=== PATIENT | female | born 2000 | race Caucasian/White ===

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

== ENCOUNTER 2022-10-17 04:15 | Outpatient (CLI) | payer MEDICAID, SELFPAY ==
[2022-10-17 11:59] LABS: Abs Immature Grans 0.06 10^3/uL (0.0-0.06); Absolute Basophil Count 0.02 10^3/uL (0.0-0.2); Absolute Eosinophil Count 0.14 10^3/uL (0.0-0.7); Absolute Monocyte Count 0.46 10^3/uL (0.1-0.8); Absolute Neutrophil Count 7.51 10^3/uL (1.2-6.7); Basophils % 0.2; Eosinophils % 1.3; HCT 36.6 % (36.0-46.0); HGB 12.6 g/dL (11.2-15.7); Immature Grans % 0.6; Lymphocytes % 21.2; MCHC 34.4 % (32.0-36.0); MCV 93 fL (80-95); MPV 9.2 fL (8.0-11.0); Monocytes % 4.4; Neutrophils % 72.3; Platelet Count 325 10^3/uL (130-400); RBC 3.94 10^6/uL (3.93-5.22); RDW 11.8 % (11.7-14.6); RDW-SD 40.3 fL; WBC 10.39 10^3/uL (4.4-10.8)
[2022-10-17 12:15] LABS: Glucose,1 Hr (Glucola) 114 mg/dL (80-140)
[2022-10-17 12:46] LABS: TSH (W/Ref FT4) 0.52 uIU/mL (0.36-3.74)
[2022-10-17 12:58] LABS: Panorama Kit Sent via Fed Ex
[2022-10-18 09:04] LABS: Hepatitis B Surface Ag Negative (Negative)
[2022-10-18 09:45] LABS: Hepatitis C Ab w Rflx HCV PCR Negative (Negative)
[2022-10-18 09:58] LABS: HIV-1/2 Ag & Ab Screen Negative (Negative)
[2022-10-18 11:24] LABS: Varicella IgG Antibody Positive (See Note)
[2022-10-18 14:06] LABS: Rubella IgG Ab (UVM) Equivocal (See Note)
[2022-10-27 08:53] LABS: Syphilis IgG w/Reflex Nonreactive (Nonreactive)
== END 2022-10-17 04:16 | disposition home or self-care (01) ==
LOC: LBO 04:15
PROVIDERS: Visit Provider Advanced Practice Midwife
DX: Z34.91 Encounter for supervision of normal pregnancy, unspecified, first trimester
CPT/HCPCS: 36415; 82950; 86787; 86803; 86850; 86900; 86901; 87340; 87389; 84443; 85025; 86762; 86780

== ENCOUNTER 2022-10-17 10:53 | Outpatient (REF) | payer MEDICAID, SELFPAY ==
--- NOTE | 2022-10-17 10:00 | PAPFT_PTH ---
PATIENT: Kinga Willams LOC: [facility] U#:[id number] AGE/SX: 22/F ROOM: RE10/17/[address]: Vidhya Patricio CNM : 2000 BED: DIS: 10/17/2022 SPEC #: [id number] RECD: 10/17/22 17:06 STATUS: ADAM CRUZ #: [id number] KIRK: 10/17/22 10:[address]: Vidhya Patricio DEPT: [facility] Cytology RECD BY: Jayne Gamboa Tissues: 1 - CX/ENDOCX FOR PAP SMEARS Procedures: PAP THIN PREP/UVM Screening Comments: [id number] (CHLAMYDIA/GC)
[2022-10-17 13:34] LABS: *AMPHETAMINES SCREEN URINE Negative (Negative); *BARBITURATES SCREEN URINE Negative (Negative); *BENZODIAZEPINES SCREEN URINE Negative (Negative); Cannabinoids THC Negative (Negative); Cocaine Screen,Urine Negative (Negative); METHADONE URINE SCREEN Negative (Negative); OPIATES URINE SCREEN Negative (Negative)
[2022-10-17 13:36] LABS: Tricyclic Antidepressants Negative (Negative)
[2022-10-18 14:31] LABS: Chlamydia Result Negative (Negative); GC Result Negative (Negative)
[2022-10-26 10:55] LABS: Buprenorphine Negative ng/mL (Cutoff: 5.0); Norbuprenorphine Negative ng/mL (Cutoff: 2.5)
== END 2022-10-17 10:54 | disposition home or self-care (01) ==
LOC: LBN 10:53
PROVIDERS: Visit Provider Advanced Practice Midwife
DX: Z34.91 Encounter for supervision of normal pregnancy, unspecified, first trimester (principal); Z12.4 Encounter for screening for malignant neoplasm of cervix; N77.1 Vaginitis, vulvitis and vulvovaginitis in diseases classified elsewhere
CPT/HCPCS: 80307; 80348; 87491; 87591; 88142; 87086

== ENCOUNTER 2022-11-29 00:52 | Outpatient (CLI) | payer MEDICAID, SELFPAY ==
--- NOTE | 2022-11-29 07:45 | DI.US_ITS ---
Exam(s) US OB 2-3 TRIMESTER EXAM: US OB 2-3 TRIMESTER CLINICAL HISTORY: 18 wk anatomy survey,z34.90. TECHNIQUE: Transabdominal obstetrical ultrasound was performed. COMPARISON: US POCUS EXAM from 09/26/2022 FINDINGS: There is a single viable intrauterine gestation with cardiac activity identified-151 bpm. Amniotic fluid: There is a normal amount of amniotic fluid. Placental location: The placenta is anterior grade 1,with no evidence of placenta previa.There is a 6 cm distance from the cord insertion site to the placental margin. ANATOMY: A 3 vessel umbilical cord is seen. A four-chamber cardiac view was obtained. Right and left ventricular outflow tracts were imaged. There are no obvious abnormalities of the spinal column evident. There is no obvious abnormal ity of the anterior abdominal wall. stomach and urinary bladder are identified and there is no evidence of hydronephrosis. No abnormalities of the upper lip region are identified. No evidence of choroid plexus cysts i n the brain. Dating parameters place this at approximately 19 weeks and 2 days gestational age. BPD measures 19 weeks and 4 days HC measures 19 weeks and 3 days AC measures 19 weeks and 4 days FL measures 18 weeks and 4 days Estimated weight is 280 gm - Fetus is at the 97th percentile on the Hadlock scale. IMPRESSION:: Single viable intrauterine gestation which is approximately weeks and 2 days gestationa l age, implying an HARPAL of April 23, 2023. There are no obvious anomalies evident on today's study. The placenta is anterior grade 1 with no evidence of placenta previa. There is a normal amount of amniotic fluid. DATA REPOSITORY:
== END 2022-11-29 01:12 ==
LOC: DI 00:52
PROVIDERS: Visit Provider Advanced Practice Midwife
DX: Z34.92 Encounter for supervision of normal pregnancy, unspecified, second trimester
CPT/HCPCS: 76805

== ENCOUNTER 2023-02-06 03:35 | Outpatient (CLI) | payer MEDICAID, SELFPAY ==
[2023-02-06 12:34] LABS: HCT 35.3 % (36.0-46.0); MCH 31.7 pg (27.0-33.0); MCV 93 fL (80-95); MPV 9.3 fL (8.0-11.0); Platelet Count 301 10^3/uL (130-400); RBC 3.78 10^6/uL (3.93-5.22); RDW 12.3 % (11.7-14.6); RDW-SD 42.8 fL; WBC 17.75 10^3/uL (4.4-10.8)
[2023-02-06 12:48] LABS: Glucose,1 Hr (Glucola) 136 mg/dL (80-140)
== END 2023-02-06 03:36 | disposition home or self-care (01) ==
LOC: LBO 03:35
PROVIDERS: Advanced Practice Midwife; Visit Provider Advanced Practice Midwife
DX: Z34.93 Encounter for supervision of normal pregnancy, unspecified, third trimester (principal); Z3A.28 28 weeks gestation of pregnancy
CPT/HCPCS: 36415; 82950; 85027

== ENCOUNTER 2023-02-21 03:30 | Outpatient (CLI) | payer MEDICAID, SELFPAY ==
[2023-02-21 09:19] LABS: Glucose 1 Hour 118 mg/dL
[2023-02-21 11:49] LABS: Glucose 3 Hour 81 mg/dL
== END 2023-02-21 03:31 | disposition home or self-care (01) ==
LOC: LBO 03:30
PROVIDERS: Visit Provider Advanced Practice Midwife
DX: Z34.93 Encounter for supervision of normal pregnancy, unspecified, third trimester (principal); Z3A.30 30 weeks gestation of pregnancy
CPT/HCPCS: 36410; 82951

== ENCOUNTER 2023-04-02 18:47 | Outpatient (REF) | payer MEDICAID, SELFPAY ==
[2023-04-02 19:40] LABS: *AMPHETAMINES SCREEN URINE Negative (Negative); *BARBITURATES SCREEN URINE Negative (Negative); *BENZODIAZEPINES SCREEN URINE Negative (Negative); Cannabinoids THC Negative (Negative); Cocaine Screen,Urine Negative (Negative); METHADONE URINE SCREEN Negative (Negative); OPIATES URINE SCREEN Negative (Negative)
[2023-04-02 19:44] LABS: Tricyclic Antidepressants Negative (Negative)
[2023-04-09 14:25] LABS: Buprenorphine Negative ng/mL (Cutoff: 5.0); Norbuprenorphine Negative ng/mL (Cutoff: 2.5)
== END 2023-04-02 18:48 | disposition home or self-care (01) ==
LOC: LBN 18:47
PROVIDERS: Visit Provider Advanced Practice Midwife
DX: Z34.90 Encounter for supervision of normal pregnancy, unspecified, unspecified trimester (principal)
CPT/HCPCS: 80307; 80348; 87081

== ENCOUNTER 2023-04-27 07:36 | Outpatient (CLI) | payer MEDICAID, SELFPAY ==
[2023-04-27 07:38] VITALS: BP 127/73; PULSE 101; RESP 16; TEMP 37.1; O2SAT 100
--- NOTE | 2023-04-27 08:18 | W.OBNST ---
Date of service: 04/27/23 Time of Service: 08:18 NST Evaluation Reason for NST Reasons for Nonstress Test: OTHER, SEE COMMENT Reason for NST Other: Labor check Gestational Age Gestational Age in Weeks and Days: 39 Weeks and 4Days Test and Monitor Explained Test/Monitor Explained: Test Explained NST Information Date on Monitor: 04/27/23 Time on Monitor: 07:30 NST Interventions: PO Hydration NST Evaluation Patient States Movement: Present FHR Baseline: 135 Variability: Moderate 6-25 bpm Accelerations: 15x15 Decelerations: None NST Results: Reactive Note Ultrasound Done: N/A. NST Note Note: NST is reactive and reassuring. Plan to have patient walk for a 2 hour period and recheck to see if cervical change is occurring. VELIA NST Reviewed and Verified by: Alysa Mckee
== END 2023-04-27 10:10 | disposition home or self-care (01) ==
LOC: BCD 07:37 → OBS 08:02
PROVIDERS: Visit Provider Advanced Practice Midwife
DX: O47.1 False labor at or after 37 completed weeks of gestation (principal); Z3A.39 39 weeks gestation of pregnancy
CPT/HCPCS: 59025

== ENCOUNTER 2023-04-27 20:42 | Inpatient (IN) | payer MEDICAID, SELFPAY ==
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
[2023-04-27 21:10] VITALS: PULSE 101; PULSE 102; TEMP 36.7; O2SAT 98
[2023-04-27 21:18] LABS: HCT 34.5 % (36.0-46.0); HGB 11.5 g/dL (11.2-15.7); MCH 28.5 pg (27.0-33.0); MCHC 33.3 % (32.0-36.0); MCV 86 fL (80-95); MPV 9.3 fL (8.0-11.0); Platelet Count 338 10^3/uL (130-400); RBC 4.03 10^6/uL (3.93-5.22); RDW 14.1 % (11.7-14.6); RDW-SD 43.8 fL; WBC 18.39 10^3/uL (4.4-10.8)
--- NOTE | 2023-04-27 23:54 | W.PM.OBNL1 ---
Date of service: 04/27/23 Time of Service: 23:55 Pelvic Exam Comments: deferred Contractions Monitor Mode: Palpation Contraction Frequency(min): 3-4 Contraction Duration(sec): 60-80 Intensity: Moderate/Strong Fetus A Monitor: Doppler Heart Rate Baseline: 115 Amniotic Membrane Status: Intact Assessment and Plan Assessment and plan (1) Normal labor: Status: Acute Assessment and plan: 1. Continue expectant management, will reassess cervix when next out of tub to BR or prn. Objective Abnormal lab results 04/27/23 Range/Units 21:10 WBC 18.39 H (4.4-10.8) 10^3/uL Hct 34.5 L (36.0-46.0) % Temp Pulse Pulse Ox 98.1 F 102 H 98 04/27/23 21:10 04/27/23 21:10 04/27/23 21:10 Laboratory Results WBC 18.39 10^3/uL (4.4-10.8) H 04/27/23 21:10 RBC 4.03 10^6/uL (3.93-5.22) 04/27/23 21:10 Hgb 11.5 g/dL (11.2-15.7) 04/27/23 21:10 Hct 34.5 % (36.0-46.0) L 04/27/23 21:10 MCV 86 fL (80-95) 04/27/23 21:10 MCH 28.5 pg (27.0-33.0) 04/27/23 21:10 MCHC 33.3 % (32.0-36.0) 04/27/23 21:10 RDW 14.1 % (11.7-14.6) 04/27/23 21:10 Plt Count 338 10^3/uL (130-400) 04/27/23 21:10 MPV 9.3 fL (8.0-11.0) 04/27/23 21:10 Patient ABO/Rh A Positive 04/27/23 21:10 Antibody Screen POSITIVE 04/27/23 21:10 Vital Signs Reviewed: Yes Subjective Interval history since last seen: In tub, working well through contractions. States she feels the contractions are stronger now. Denies ROM or increase in show. Results Hemoglobin/Hematocrit: Hgb 11.5 g/dL (11.2-15.7) 04/27/23 21:10 Hct 34.5 % (36.0-46.0) L 04/27/23 21:10 Abnormal Lab Findings: Abnormal Labs 04/27/23 21:10 WBC 18.39 H Hct 34.5 L
[2023-04-28] VITALS (11 sets, daily range): BP systolic 97–124; BP diastolic 44–79; PULSE 65–100; RESP 16–17; TEMP 36.6–37.3; O2SAT 99–100
[2023-04-28] MEDS: Oxytocin 10 UNITS/ML VIAL IM (01:03)
[2023-04-28] MEDS: Acetaminophen 325 MG TAB 650 MG PO ×3 (01:33→19:28)
[2023-04-28] MEDS: Ibuprofen 600 MG TAB PO ×2 (01:34→13:07)
--- NOTE | 2023-04-28 02:07 | W.OBDELIVERY ---
Date of service: 04/28/23 Time of Service: 01:30 OB Labor/ Delivery Information Baby A Delivery Delivery Method: Spontaneaous Presentation: Cephalic Cephalic Position: Vertex Vertex Position: Left Occipital Anterior Cord Description-Baby A: 3 Vessels and Clamped/Cut (5 minutes delayed cord clamping) Amniotic Fluid: Clear Estimated Blood Loss: 300 Delivery Outcome: Liveborn Complications: none Infant Transferred: Remains with Mother Providers Nurse Commission Sales Associate: Alysa Mckee Nurse: Jie Doe Nurse: Mica Gonzales Labor/Delivery Information Number of Babies in Womb: 1 Steroids Given: None Reason Steroids Not Administered: N/A Group Beta Strep: Negative Antibiotics Administered: No Rubella Status: Equivocal Blood Type: A+ Varicella Immunity: Immune Shoulder Dystocia: No Note: Kinga presents for labor at approximately 2000 after beginning labor at 1800 on 04/27/23. She was 4/90/-1 on arrival and progressed to 10cm at 0052 on 04/28/23. Second stage huddle held. FHR has been WNL by doppler since initial tracing which was CAT I. She was bearing down spontaneously and a live male delivered over intact perineum at 0058. SROM occurred at with clear fluid. Baby was brought skin to skin, positive bonding noted. 10 units of pitocin was given IM. Placenta delivers spontaneously at 0107, intact. Fundus firmed to U with massage. Bimanual exam shows lower uterine segment is also firm and no clots obtained. Baby 9 and 9. Weight will be on completed delivery record. Parents plan circumcision for Pranav. Kinga plans to breast feed. Expect normal PP course. KH Stages of Labor Onset of Labor Date: 04/27/23 Onset of Labor Time: 18:00 Complete Dilatation Date: 04/28/23 Complete Dilatation Time: 00:52 Labor - Stage 1 Duration: 6 hours and 52 minutes ROM Baby A: 04/28/23 ROM Baby A: 00:58 ROM Total Time- Baby A: [id number] Delivery Date-Baby A: 04/28/23 Delivery Time-Baby A: 00:58 Labor Stage 2 Duration: 6 minutes Placenta Delivery Date-Baby A: 04/28/23 Placenta Delivery Time-Baby A: 01:07 Labor-Stage 3 Duration: 9 minutes Total Length of Labor-Baby A: 6 hours and 58 minutes Placenta Status: Delivered Baby A Gender: Male Gestational Status: Term (39-41.6 wks) Gestational Age in Weeks/Days: 39 Weeks and 5 Days Score-1 Minute Interval(Baby A) Heart Rate-1 minute: 100 BPM or Greater Respiratory Effort- 1 minute: Spontaneous/Strong Cry Muscle Tone-1 minute: Active Movement Reflex Response-1 minute: Prompt Response Color-1 minute: Bluish Hands or Feet Total Score-1 minute: 9 Score-5 Minute Interval(Baby A) Heart Rate- 5 minute: 100 BPM or Greater Respiratory Effort-5 minute: Spontaneous/Strong Cry Muscle Tone-5 minute: Active Movement Reflex Response-5 minute: Prompt Response Color-5 minute: Bluish Hands or Feet Total Score- 5 minute: 9
[2023-04-28] MEDS: Hamamelis Leaf/Glycerin 100 EACH BOX PR (20:51)
[2023-04-28] MEDS: Dibucaine 1% 28 GM TUBE TP (20:51)
[2023-04-29 07:45] VITALS: BP 112/62; PULSE 78; RESP 15; TEMP 36.6; O2SAT 100
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
== END 2023-04-29 12:35 | disposition home or self-care (01) | DRG 807 ==
LOC: BCD 20:42 → OBS 21:02
PROVIDERS: Admitting Provider Advanced Practice Midwife; Visit Provider Advanced Practice Midwife
DX: O99.52 Diseases of the respiratory system complicating childbirth (principal); Z37.0 Single live birth; Z3A.39 39 weeks gestation of pregnancy; J45.20 Mild intermittent asthma, uncomplicated; F41.8 Other specified anxiety disorders; O99.344 Other mental disorders complicating childbirth; F90.9 Attention-deficit hyperactivity disorder, unspecified type
CPT/HCPCS: 36415; 85027; 86850; 86900; 86901; 86870; 86880; 86902; 86905; J2590